=== PATIENT | male | born 1990 | race Caucasian/White ===

== ENCOUNTER → 2017-06-04 | Outpatient (CLI) | payer BC ==
--- NOTE | 2017-06-04 13:33 | Diagnostic Imaging Report ---
PROCEDURE:TESTICULAR ULTRASOUND COMPARISON:None. INDICATIONS:LT TESTICULAR PAIN TECHNIQUE: Soriano-scale and color doppler images of the testicles and scrotal contents were obtained. FINDINGS: RIGHT SCROTUM: Testicle: 2.9 x 1.7 x 3.6 cm. Uniform parenchymal echotexture without intratesticular mass lesion. Grossly normal vascularity by color Doppler analysis. Epididymal head: 1.1 x 1.1 x 0.9 cm. Uniform echotexture. Hydrocele: None Varicocele: None LEFT SCROTUM: Testicle: 3.6 x 2 x 2.8 cm. Uniform parenchymal echotexture without intratesticular mass lesion. Grossly normal vascularity by color Doppler analysis. Epididymal head: 1.2 x 0.9 x 0.7 cm. Uniform echotexture. Hydrocele: None Varicocele: Small varicocele. CONCLUSION: Small left varicocele. Unremarkable sonographic appearance of the testes. Dictated by: Juan Beck M.D. on 06/04/2017 at 13:33 Electronically approved by: Juan Beck M.D. on 06/04/2017 at 13:33
== END ==
LOC: US 12:27
PROVIDERS: ATTEND Family Medicine
DX: N50.9 Disorder of male genital organs, unspecified (principal)
CPT/HCPCS: 76870

== ENCOUNTER → 2017-10-04 | Outpatient (CLI) | payer BC ==
[~2017-10-04] MED LIST: IOPAMIDOL 370 MG/ML 200 ML INFUS..BTL INJ ONE; NITROGLYCERIN 0.4 MG SUBL ONE; SODIUM CHLORIDE 0.9% 50ML 50 ML ONE
--- NOTE | 2017-10-04 10:44 | Diagnostic Imaging Report ---
PROCEDURE: X-RAY CHEST, TWO VIEWS COMPARISON: None. INDICATIONS: CHEST PAIN FINDINGS: LUNGS: No consolidations or edema. PLEURA: No effusions or pneumothorax. HEART \T\ MEDIASTINUM: The heart is within normal size-limits. BONES \T\ SOFT TISSUES: No acute findings. CONCLUSION: No acute thoracic abnormality. Barrett Howard D.O. Dictated by: Barrett Howard D.O. on 10/04/2017 at 10:48 Electronically approved by: Barrett Howard D.O. on 10/04/2017 at 10:48
[2017-10-04 11:20] LABS: BLOOD UREA NITROGEN 12 mg/dL (7-26); BUN/CREATININE RATIO 12 (6-25); CREATININE, SERUM 1.02 mg/dL (0.72-1.25); EST GLOMERULAR FILTRATION RATE > 60 ML/MIN (60-)
--- NOTE | 2017-10-04 12:50 | Diagnostic Imaging Report ---
EXAM: CTA HEART WITH CONTRAST DATE: 10/04/2017 10:07 AM INDICATION: COMPARISON: None TECHNIQUE: Contrast-enhanced CT of the coronary arteries was obtained with retrospective electrocardiogram gating. Images were reformatted at 0.5 mm intervals and sent to the [employer] workstation for interpretation of both systolic and diastolic phases. Per technologist, heart rate 55-60 preprocedure, but jumped to near 100 at time of contrast injection/scanning. Contrast: Please see technologist worksheet. Total DLP: 1572 mGy*cm Est. Eff. Dose DLP x 0.015 x size factor mSv (CTDIvol has been reviewed and is below limits set by [facility]). Study quality: Limited by motion artifact and suboptimal bolus timing. FINDINGS: Coronary Arteries: Precontrast calcium score: No coronary artery calcifications identified. This patient has a right dominant system, with normal origins of the coronary arteries. Left Main coronary artery: No atherosclerotic disease or significant stenosis. Left anterior descending artery: No atherosclerotic disease or significant stenosis. Minimal bridging midportion suspected. Evaluation limited by motion, however. Diagonal branches: No atherosclerotic disease or significant stenosis. Left circumflex artery: Inadequately evaluated due to motion. Obtuse marginal branches: Inadequately evaluated due to motion. Right coronary artery: Limited evaluation due to motion. PDA: No atherosclerotic disease or significant stenosis. Ramus intermedius: Present.None Cardiac findings: Pacemaker: None. Artificial valve: None. Intracardiac?closure device: Ascending Aorta: 37 mm. Pulmonary Trunk: 25 mm. Partially Visualized Mediastinum: No acute findings. Partially Visualized Lungs: No acute findings. Other findings: None IMPRESSION: 1. Image quality moderately degraded by motion artifact. 2. No distinct calcifications noted on precontrast calcium score making risk of coronary artery disease limited. 3. Probable mild bridging mid LAD, suboptimally evaluated secondary to motion. Signed by: Dr. Jourdan Ponce MD on 10/04/2017 12:47 PM
== END ==
LOC: CT 09:48
PROVIDERS: ATTEND Internal Medicine
DX: R07.9 Chest pain, unspecified (principal)
CPT/HCPCS: 36415; 71046; 75574; 82565; 84520; Q9967

== ENCOUNTER → 2019-06-16 | Outpatient (CLI) | payer BC ==
--- NOTE | 2019-06-16 16:48 | Diagnostic Imaging Report ---
History: Headache Comparison studies: Prior brain MRI of 05/01/2010 is unavailable on PACS for comparison at the time of dictation. Technique: Sagittal and axial T2 FS, axial DWI, axial T2*GRE, axial T1 FLAIR and axial coronal T2 FLAIR. Intravenous contrast: None Findings: Scalp: Normal in signal. No masses. Bone marrow: Normal in signal intensity. Brain sulci: Appropriate for age. Ventricles: Normal in size. No hydrocephalus. Extra axial spaces: No mass, no fluid collection. Parenchyma: A few (approximately 12) scattered subcentimeter T2 FLAIR hyperintense foci in the supratentorial white matter are nonspecific. Differential includes minimal chronic microvascular ischemic changes or possibly migraine-related changes. Additional less likely considerations include vasculitis or demyelinating disease which should only be consideration in the appropriate clinical setting. No signal abnormalities in the corpus callosum, basal ganglia or in the posterior fossa. No mass, hemorrhage or abnormal restricted diffusion. Suprasellar region: No abnormalities. Craniocervical junction: Patent foramen magnum. No Chiari malformation. Vessels: Normal flow-voids in the arteries and sinuses. IMPRESSION: 1. No acute intracranial abnormalities. 2. Few scattered small foci of signal abnormality in the supratentorial white matter which are nonspecific as described. Similar findings were described on the prior MRI of 05/02/2010. Signed by: Dr. Juan Sevilla M.D. on 06/16/2019 4:45 PM
== END ==
LOC: MRI 14:51
PROVIDERS: ATTEND Family Medicine
DX: R51 Headache (principal)
CPT/HCPCS: 70551

== ENCOUNTER 2021-04-11 10:32 | Emergency (ER) | payer BC ==
[~2021-04-11] VITALS: Ht 182.9 cm; Wt 95.3 kg
[2021-04-11 10:55] LABS: BASOPHILS # (AUTO) 0.1 (0.0-0.1); BASOPHILS % 0.8 % (0.0-1.0); EOSINOPHILS # (AUTO) 0.2 (0.0-0.4); EOSINOPHILS % 1.9 % (0.0-6.0); HEMATOCRIT 46.1 % (38.2-49.6); HEMOGLOBIN 15.5 g/dL (14.0-18.0); LYMPHOCYTES # (AUTO) 2.9 (1.0-3.2); LYMPHOCYTES % 34.6 % (18.0-39.1); MEAN CORPUSCULAR HEMOGLOBIN 30.5 pg (28-32); MEAN CORPUSCULAR HGB CONC 33.6 g/dL (31-35); MEAN CORPUSCULAR VOLUME 90.6 fL (81-99); MONOCYTES # (AUTO) 0.8 (0.2-0.8); MONOCYTES % 9.7 % (4.4-11.3); NEUTROPHILS # (AUTO) 4.3 (2.1-6.9); NEUTROPHILS % 52.5 % (38.7-80.0); PLATELET COUNT 207 x10e3/uL (140-360); RED BLOOD COUNT 5.09 x10e6/uL (4.3-5.7); RED CELL DISTRIBUTION WIDTH 12.3 % (11.7-14.4)
[2021-04-11 11:02] LABS: CLARITY,URINE CLEAR (CLEAR); COLOR,URINE YELLOW (YELLOW); KETONES,URINE NEGATIVE (NEGATIVE); LEUKOCYTE ESTERASE ,URINE TRACE (NEGATIVE); NITRITE,URINE NEGATIVE (NEGATIVE); PROTEIN,URINE DIPSTICK NEGATIVE (NEGATIVE); URINE UROBILINOGEN 0.2 mg/dL (0.2 - 1)
[2021-04-11 11:13] LABS: ALBUMIN 4.6 g/dL (3.5-5.0); ALBUMIN/GLOBULIN RATIO 1.4 (0.8-2.0); ANION GAP 7.9 mmol/L (8-16); CALCIUM 9.9 mg/dL (8.4-10.2); CREATININE, SERUM 0.94 mg/dL (0.72-1.25); POTASSIUM 3.9 mmol/L (3.5-5.1)
[2021-04-11 11:23] LABS: BACTERIA,URINE RARE /HPF
[2021-04-11 11:24] LABS: WBC,URINE (MAN) 0-5 /HPF (0-5)
[2021-04-11] MEDS ORDERED: IOPAMIDOL 370 MG/ML 200 ML INFUS..BTL INJ ONE (11:31)
[2021-04-11] MEDS ORDERED: SODIUM CHLORIDE 0.9% 50ML 50 ML ONE (11:31)
[2021-04-11] MEDS ORDERED: MIRALAX17 GM PO (12:19)
== END 2021-04-11 13:30 | disposition home or self-care (01) ==
LOC: ER 10:42
DX: R10.31 Right lower quadrant pain (principal); I10 Essential (primary) hypertension; F41.9 Anxiety disorder, unspecified
CPT/HCPCS: 36415; 74177; 80053; 81001; 85025; 99284; Q9967

== ENCOUNTER → 2024-05-11 | Day surgery (SDC) | payer BC ==
[~2024-05-11] MED LIST changes: +AMLODIPINE BESYL5 MG PO; +CRESTOR40 MG PO; -IOPAMIDOL 370 MG/ML 200 ML INFUS..BTL INJ ONE; +LIDOCAINE HCL 2% LOCAL INJ 5 ML SDV VIAL INJ ONE; +METOCLOPRAMIDE HCL 10 MG/2ML VIAL ONE; +MIRALAX17 GM PO; -NITROGLYCERIN 0.4 MG SUBL ONE; +OMEPRAZOLE40 MG PO; +PAROXETINE HCL20 MG PO; +PROPOFOL IV EMULSION 10 MG/ML 20 ML VIAL ONE; -SODIUM CHLORIDE 0.9% 50ML 50 ML ONE; +TESTOSTERO100 MG/1 M INJ; +TRAZODONE HCL50 MG PO; +ZESTRIL10 MG PO
[2024-05-11] MEDS: LACTATED RINGER'S 1,000 ML ONE (06:49)
[2024-05-11 07:58] VITALS: BP 138/82; PULSE 78; RESP 18; O2SAT 98
== END | disposition home or self-care (01) ==
LOC: OR 05:56
PROVIDERS: ATTEND Internal Medicine Gastroenterology
DX: K29.70 Gastritis, unspecified, without bleeding (principal); K20.90 Esophagitis, unspecified without bleeding; K44.9 Diaphragmatic hernia without obstruction or gangrene; K21.9 Gastro-esophageal reflux disease without esophagitis; I10 Essential (primary) hypertension; E78.5 Hyperlipidemia, unspecified; R06.02 Shortness of breath; F41.9 Anxiety disorder, unspecified; F32.A Depression, unspecified; Z01.810 Encounter for preprocedural cardiovascular examination; Z79.899 Other long term (current) drug therapy
CPT/HCPCS: 43239; 93005; J2003; J2470; J2704; J2765; J7121